=== PATIENT | male | born 1960 | race Caucasian/White ===

== ENCOUNTER → 2018-03-22 | Outpatient (REF) | payer MEDICARE, MEDICAID ==
[2018-03-22 17:38] LABS: INR 0.94; PROTHROMBIN TIME 12.7 SECONDS (12.4-14.5)
[2018-03-22 17:39] LABS: PARTIAL THROMBOPLASTIN TIME 33.9 SECONDS (26.8-37.9)
[2018-03-22 17:51] LABS: PLATELET COUNT, AUTOMATED 233 10^3/uL (150-450)
== END ==
LOC: M LAB REF 16:56
DX: R91.8 Other nonspecific abnormal finding of lung field (principal); Z01.812 Encounter for preprocedural laboratory examination; Z79.01 Long term (current) use of anticoagulants
CPT/HCPCS: 85049

== ENCOUNTER → 2018-04-10 | Outpatient (CLI) | payer MEDICARE, MEDICAID ==
[~2018-04-10] MED LIST: LIDOCAINE 1% MDV 20ML VIAL As Ordered
== END ==
LOC: M RADPRO 10:08
DX: R91.8 Other nonspecific abnormal finding of lung field (principal); J95.811 Postprocedural pneumothorax; Z87.19 Personal history of other diseases of the digestive system; Z95.828 Presence of other vascular implants and grafts; Z79.82 Long term (current) use of aspirin; Z79.899 Other long term (current) drug therapy; Z88.5 Allergy status to narcotic agent; Z88.3 Allergy status to other anti-infective agents; Z88.1 Allergy status to other antibiotic agents
CPT/HCPCS: 32405

== ENCOUNTER 2018-12-05 06:35 | Day surgery (SDC) | payer MEDICARE, MEDICAID ==
[~2018-12-05] VITALS: Ht 172.7 cm; Wt 74.4 kg
[~2018-12-05 06:35] MED LIST changes: +ASPI81TA85 PO; +BACL10TA2 PO; +CLOP75TA2 PO; +GINS100C2 PO; -LIDOCAINE 1% MDV 20ML VIAL As Ordered; +MULTCAP PO; +PANT40TA3 PO; +PROAAER10 INH; +ROSU20TA4 PO; +SAW1CAP2 PO; +ZOLP10TA2 PO
[2018-12-05] MEDS ORDERED: LR 1,000 ML IV ONE (07:00)
[2018-12-05] MEDS ORDERED: THROMBIN SOLN 20,000 UNITS KIT As Ordered ONE (08:18)
[2018-12-05] MEDS ORDERED: EPINEPHrine 1MG/10ML SYRINGE 1.5IN As Ordered ONE (08:19)
[2018-12-05] MEDS ORDERED: LIDOCAINE VISCOUS 2% SOLN 15ML UDC As Ordered ONE (08:19)
[2018-12-05] MEDS ORDERED: LIDOCAINE 4% TOPICAL SOLN 50 ML BTL As Ordered ONE (08:19)
[2018-12-05] MEDS ORDERED: LIDOCAINE 1% SDV INJ 30 ML VIAL As Ordered ONE (08:19)
[2018-12-05] MEDS ORDERED: PROPOFOL 200 MG/20 ML VIAL As Ordered ONE (08:20)
[2018-12-05] MEDS ORDERED: CETACAINE SPRAY 5GM As Ordered ONE (08:20)
[2018-12-05] MEDS ORDERED: ROCURONIUM BROMIDE 50 MG/5 ML VIAL As Ordered ONE (08:20)
[2018-12-05] MEDS ORDERED: LIDOCAINE 2% INJ 100 MG/5 ML SDV (FOR ANES.) As Ordered ONE (08:20)
[2018-12-05] MEDS ORDERED: MIDAZOLAM INJ 2 MG/2 ML VIAL (J2250) As Ordered ONE (08:21)
[2018-12-05] MEDS ORDERED: fentaNYL 100 MCG/2 ML INJECTION (J3010) As Ordered ONE (08:21)
[2018-12-05] MEDS ORDERED: dexameTHASONE 4 MG/ML 1ML VIAL (J1100) As Ordered ONE (08:58)
[2018-12-05] MEDS ORDERED: KETOROLAC 60 MG/2 ML VIAL (J1885) As Ordered ONE (08:58)
[2018-12-05] MEDS ORDERED: ONDANSETRON 4MG/2ML VIAL (J2405) As Ordered ONE (08:58)
[2018-12-05] MEDS ORDERED: SUGAMMADEX SODIUM 500 MG/5 ML VIAL (BRIDION) As Ordered ONE (09:20)
[2018-12-05] MEDS ORDERED: PERCOCET 5MG/325MG TAB PO PRN (10:00)
[2018-12-05] MEDS ORDERED: LR 1,000 ML IV SCH (10:00)
[2018-12-05] MEDS ORDERED: fentaNYL 100 MCG/2 ML INJECTION (J3010) IV PRN (10:00)
[2018-12-05] MEDS ORDERED: ONDANSETRON 4MG/2ML VIAL (J2405) IV PRN (10:00)
--- NOTE | 2018-12-05 10:13 | REP ---
Clinical: Postoperative evaluation. Comparison: 04/10/2018. Findings: Mediastinum and cardiac silhouette are relatively stable. Lung vásquez demonstrate diffuse chronic interstitial changes. Superimposed opacity in the periphery of the right mid lung zone as well as scattered atelectasis cannot be excluded. No obvious effusion. No obvious pneumothorax. Skeletal structures intact. Impression: Diffuse chronic interstitial changes similar to prior examination. Superimposed/increased opacity in the periphery of the right mid lung zone. No pneumothorax. Electronically Signed by Homer Oviedo MD 12/05/2018 10:04 A
[2018-12-05 11:10] VITALS: BP 132/67
--- NOTE | 2018-12-06 07:49 | RO ---
DATE OF PROCEDURE: 12/05/2018 PREOPERATIVE DIAGNOSIS: Bilateral pulmonary nodules with rapid increase in size of the right pulmonary nodule, unknown etiology. POSTOPERATIVE DIAGNOSIS: Bilateral pulmonary nodules with rapid increase in size of the right pulmonary nodule, unknown etiology. PROCEDURE: Electromagnetic Navigational Bronchoscopy with fine needle aspirate, GenCut, transbronchial biopsies, microbiology brushing and BAL. ANESTHESIA: General SURGEON: Dr. Coyne PROCEDURE NOTE: Procedure explained and consent obtained. Bunch procedure was followed. Mr. Caldwell was intubated by anesthesia. Anesthesia controlled sedation and pain management. Following intubation, the bronchoscope was introduced into the trachea. The left and right lungs were examined. There was a small amount of yellow mucous which was evacuated. There was also findings suggestive of yeast. The mucosa was very friable. After initial inspection of the airways, the ENB probe was placed and registration was done. Following this, the right upper lobe pulmonary nodule was located using ENB. After locating the lesion a fine needle aspirate was done followed by a GenCut. The ENB probe was then replaced and confirmed we were still in good position. Following this a microbiology brush was done, then 6 transbronchial biopsies were obtained. This was followed by a BAL. At this point the bronchoscope was withdrawn. The airways were then inspected. There was no significant bleeding. After assuring hemostasis the bronchoscope was withdrawn. Tolerated well. Postprocedure x-ray pending. FINDINGS: 1. Small amount of mucous in the airways bilaterally. 2. Findings suggestive of bronchiectasis. 3. Friable airway. SPECIMENS: 1. Right upper lobe fine needle aspirate of the nodule sent to cytology. 2. GenCut of the right upper lobe nodule sent to cytology. 3. Bronchial brushing of the right upper lobe, nodule sent to microbiology with request for AFB and fungal cultures in addition to routine if possible. 4. Right upper lobe nodule transbronchial biopsies sent to pathology. 5. Right upper lobe nodule BAL sent to cytology as well as to microbiology for gram stain and culture, AFB stain and culture and fungal stain and culture. [facility]
== END 2018-12-05 11:20 | disposition home or self-care (01) ==
LOC: M SDC 06:35
PROVIDERS: ATTEND Internal Medicine Pulmonary Disease
DX: J47.0 Bronchiectasis with acute lower respiratory infection (principal); R06.00 Dyspnea, unspecified; R05 Cough; R94.2 Abnormal results of pulmonary function studies; J34.1 Cyst and mucocele of nose and nasal sinus; E78.5 Hyperlipidemia, unspecified; G25.81 Restless legs syndrome; F17.218 Nicotine dependence, cigarettes, with other nicotine-induced disorders; K21.9 Gastro-esophageal reflux disease without esophagitis; Z79.82 Long term (current) use of aspirin; Z79.02 Long term (current) use of antithrombotics/antiplatelets; Z98.61 Coronary angioplasty status; Z79.899 Other long term (current) drug therapy
CPT/HCPCS: 31623; 31624; 31625; 31627; 31628; 71045; 76000; 87070; 87071; 87102; 87116; 87205; 87206; 88108; 88173; 88305; 88312; 88313; J1100; J1885; J2250; J2405; J3010

== ENCOUNTER → 2019-03-12 | Outpatient (REF) | payer MEDICARE, MEDICAID ==
[2019-03-12 18:46] LABS: APPEARANCE, URINE CLEAR (CLEAR); BACTERIA, URINE AUTO NEGATIVE (NEGATIVE); BILIRUBIN, URINE AUTO NEGATIVE (NEGATIVE); BLOOD, URINE BLOOD NEGATIVE (NEGATIVE); COLOR, URINE YELLOW (YELLOW); GLUCOSE, URINE (UA) AUTO NEGATIVE (NEGATIVE); KETONE, URINE AUTO NEGATIVE (NEGATIVE); LEUKOCYTE ESTERASE, URINE AUTO NEGATIVE (NEGATIVE); NITRITE, URINE AUTO NEGATIVE (NEGATIVE); PROTEIN, URINE AUTO NEGATIVE (NEGATIVE); RBC, URINE AUTO 0 /HPF (0-3); SPECIFIC GRAVITY URINE AUTO 1.014 (1.002-1.035); SQUAMOUS EPITHELIAL CELL UR AU 0 /HPF (0-6); WBC, URINE AUTO 1 /HPF (0-3)
== END ==
LOC: M SMT 17:21
PROVIDERS: ATTEND Nurse Practitioner Women's Health
DX: N40.1 Benign prostatic hyperplasia with lower urinary tract symptoms (principal)
CPT/HCPCS: 51798; 81001; 87086; G0463

== ENCOUNTER → 2019-04-16 | Outpatient (CLI) | payer MEDICARE, MEDICAID ==
[~2019-04-16] MED LIST changes: -ROSU20TA4 PO; +ROSU20TA5 PO
--- NOTE | 2019-04-16 19:21 | REP ---
PET/CT: History: Diagnosing solitary pulmonary nodule. Comparisons: Comparison PET-CT study July 04, 2017. Comparison CT scan is from March 27, 2019. Enlarging left upper lobe and right upper lobe pulmonary nodules. Small nodule in the left apex as well. TECHNIQUE: 44 minutes following the intravenous injection of a 9.19 mCi dose of F-18 FDG, three-dimensional PET scintigraphy is acquired from the skull base to the proximal thighs. Triplanar noncontrast CT scanning is acquired through the same anatomic range for attenuation correction, and image registration with scan parameters optimized to minimize radiation exposure to the patient. PET scintigraphy and CT datasets were fused and displayed on a workstation with multiplanar and projection display capability. PET/CT Findings: There is discernible but non hypermetabolic uptake in the sub-centimeter nodule in the left lung apex. Maximum standard uptake value is 1.58. The enlarging spiculated nodule in the left upper lobe lingular segment is quite hypermetabolic today, maximum standard uptake value 14.07, previously 2.9. There is hypermetabolic peg uptake in the inferior hilus on the left with maximum standard uptake value 4.73. This is a new finding. The spiculated opacity in the right upper lobe is mildly hypermetabolic with maximum standard uptake value 4.19. No mediastinal or right hilar hypermetabolic uptake is seen. Head and neck soft tissues are unremarkable. No abnormal hypermetabolic uptake is seen in the abdomen or pelvis. Incidental findings include left colonic diverticulosis, cholelithiasis, and bilateral common and external iliac artery stents. Impression: Hypermetabolic uptake is seen in the spiculated lingular and right upper lobe nodular opacities. There is also hypermetabolic peg uptake in the left inferior hilus today. Significant change from the comparison PET-CT. Electronically Signed by Jeramy Collins MD 04/16/2019 07:32 P
== END ==
LOC: M PLARAD 13:39
PROVIDERS: ATTEND Internal Medicine Pulmonary Disease
DX: R91.1 Solitary pulmonary nodule (principal)
CPT/HCPCS: 78815; A9552

== ENCOUNTER → 2019-04-17 | Outpatient (REF) | payer MEDICARE, MEDICAID ==
[2019-04-17 18:00] LABS: INR 0.94; PROTHROMBIN TIME 12.3 SECONDS (11.8-14.0)
[2019-04-17 18:01] LABS: PARTIAL THROMBOPLASTIN TIME 33.7 SECONDS (25.0-38.4)
== END ==
LOC: M LAB REF 16:51
PROVIDERS: ATTEND Internal Medicine Pulmonary Disease
DX: Z01.812 Encounter for preprocedural laboratory examination (principal); Z79.01 Long term (current) use of anticoagulants; R91.8 Other nonspecific abnormal finding of lung field

== ENCOUNTER → 2019-04-30 | Outpatient (CLI) | payer MEDICARE, MEDICAID ==
[~2019-04-30] MED LIST changes: +LIDOCAINE 1% MDV 20ML VIAL As Ordered ONE
[2019-04-30 12:31] VITALS: BP 163/73
--- NOTE | 2019-04-30 14:08 | REP ---
POSTBIOPSY CHEST: Single view of the chest is performed status post left lung biopsy. There is no pneumothorax. There are fibroatelectatic changes seen in the lung bases bilaterally. IMPRESSION: No pneumothorax status post left lung biopsy. Electronically Signed by Paddy Lemos MD 04/30/2019 05:21 P
--- NOTE | 2019-04-30 17:08 | REP ---
CT-GUIDED LEFT UPPER LOBE LUNG BIOPSY The procedure was performed under the direct supervision of Dr. lemos. The patient has a history of an enlarging spiculated nodule in the left upper lobe lingular segment which is hypermetabolic on a previous PET scan dated 04/16/2019. The risks and benefits of the procedure were explained to the patient and informed consent was obtained. The left upper lobe lung nodule was localized using CT guidance. The skin was prepped and draped in a sterile fashion. 1% lidocaine was used as a local anesthetic. Using CT guidance a 19/20 gauge coaxial needle biopsy system was inserted and advanced into the nodule. Five core biopsy samples were obtained and sent to lab. The patient tolerated the procedure well and there were no immediate complications. After the appropriate amount of monitored convalescence the patient was discharged from the department. Reviewed by ALONDRA Qiu 04/30/2019 04:39 P Electronically Signed by Paddy Lemos MD 04/30/2019 05:00 P
== END ==
LOC: M IRPRO 08:33
DX: C34.31 Malignant neoplasm of lower lobe, right bronchus or lung (principal)

== ENCOUNTER → 2019-08-20 | Outpatient (CLI) | payer MEDICARE, MEDICAID ==
[~2019-08-20] MED LIST changes: -LIDOCAINE 1% MDV 20ML VIAL As Ordered ONE; +TRIA1OI TOP
--- NOTE | 2019-08-20 19:50 | REP ---
PET/CT: History: Restaging bilateral lung CA. Stage IV adenocarcinoma of the lung. Chemotherapy. Comparisons: Comparison PET-CT study April 16, 2019. TECHNIQUE: 49 minutes following the intravenous injection of a 7.33 mCi dose of F-18 FDG, three-dimensional PET scintigraphy is acquired from the skull base to the proximal thighs. Triplanar noncontrast CT scanning is acquired through the same anatomic range for attenuation correction, and image registration with scan parameters optimized to minimize radiation exposure to the patient. PET scintigraphy and CT datasets were fused and displayed on a workstation with multiplanar and projection display capability. PET/CT Findings: The spiculated lingular nodule has decreased in size in the interval since the last PET-CT and currently measures 1.7 cm in diameter. It remains hypermetabolic although much less so. Maximum standard uptake value is 4.1. Previously 14.07. This spiculated opacity previously noted to be hypermetabolic in the right upper lobe is much improved as well with ill-defined nonhypermetabolic opacity in this location, maximum standard uptake value 1.24. There is no definite hilar peg uptake. There is a focus of hypermetabolic uptake at the level of the main stem bronchus on the left. Maximum standard uptake value here is 5.98 but there is no corresponding morphologic finding in the left mainstem bronchus. No mass or nodule is appreciated on corresponding CT. This uptake is of uncertain significance. No other abnormal hypermetabolic uptake is seen within the chest. Head and neck soft tissues are unremarkable. In the abdomen and pelvis there is no abnormal hypermetabolic uptake. No adrenal uptake is seen. Impression: Significantly improved PET-CT findings. Regression in the two areas of hypermetabolic pulmonary parenchymal uptake seen on the most recent prior PET-CT study. There is a tiny subcentimeter focus of hypermetabolic uptake on today's PET-CT superimposed on the left mainstem bronchus with no corresponding morphologic abnormality, uncertain significance. Electronically Signed by Jeramy Collins MD 08/20/2019 08:16 P
== END ==
LOC: M PLARAD 11:19
PROVIDERS: ATTEND Internal Medicine Hematology & Oncology
DX: C34.31 Malignant neoplasm of lower lobe, right bronchus or lung (principal); C34.32 Malignant neoplasm of lower lobe, left bronchus or lung
CPT/HCPCS: 78815; A9552

== ENCOUNTER → 2020-02-11 | Outpatient (CLI) | payer MEDICARE, MEDICAID ==
[~2020-02-11] MED LIST changes: +AZIT-12 PO; +MUCI1CAP PO; +NASA1SPR NARES; +OXYC1CAP PO; +PRED20TA PO
--- NOTE | 2020-02-12 09:25 | REP ---
PET/CT: HISTORY: Restaging left upper lobe lung carcinoma. Adenocarcinoma. Stage IV. Chemotherapy. COMPARISONS: Comparison PET/CT study August 20, 2019. The April 16, 2019 PET/CT study is also reviewed. There is a CT study of the chest from March 27, 2019. TECHNIQUE: 56 minutes following the intravenous injection of a 8.27 mCi dose of F-18 FDG, three-dimensional PET scintigraphy is acquired from the skull base to the proximal thighs. Triplanar noncontrast CT scanning is acquired through the same anatomic range for attenuation correction, and image registration with scan parameters optimized to minimize radiation exposure to the patient. PET scintigraphy and CT datasets were fused and displayed on a workstation with multiplanar and projection display capability. PET/CT FINDINGS: Head and neck soft tissues are unremarkable. There are hypermetabolic foci in the subcarinal, left hilar, and left lower lobe of the lung. The subcarinal adenopathy shows hypermetabolic uptake with maximum SUV value 28.56. Previously, 5.90. Subcarinal node is enlarged measuring 2.7 cm in greatest diameter which is unchanged from the prior study as well. The left hilar hypermetabolic focus is a new finding from August 20, 2019. A maximum standard uptake value in the left hilar focus is 18.06 today. This is approximately 1.5 cm. The nodule in the lingula at the left lung base shows hypermetabolic uptake today, maximum standard uptake value 10.89. It is unchanged in size measuring 17 mm in greatest diameter but has increased in avidity since the prior study. No other abnormal hypermetabolic uptake is seen. No abnormal adrenal uptake is observed. No other pulmonary parenchymal hypermetabolic uptake is observed. IMPRESSION: There is evidence of progression. Subcarinal hypermetabolic adenopathy and left hilar adenopathy have increased. The degree of uptake is increased in the lingular nodule. Electronically Signed by Jeramy Collins MD 02/12/2020 10:43 A
== END ==
LOC: M PLARAD 13:14
PROVIDERS: ATTEND Internal Medicine Hematology
DX: C34.12 Malignant neoplasm of upper lobe, left bronchus or lung (principal); R59.0 Localized enlarged lymph nodes
CPT/HCPCS: 78815; A9552

== ENCOUNTER → 2022-01-31 | Outpatient (CLI) | payer MEDICARE, MEDICAID ==
[~2022-01-31] MED LIST changes: -ASPI81TA85 PO; +ASPI81TA86 PO; +BENZ200C70 PO; +ONDA-83 PO; +PANT40TA29 PO; -PANT40TA3 PO; +POTA-136 PO
== END ==
LOC: M LABSMTC 11:14
PROVIDERS: ATTEND Anesthesiology
DX: Z01.812 Encounter for preprocedural laboratory examination (principal); Z20.822 Contact with and (suspected) exposure to COVID-19

== ENCOUNTER 2022-02-04 09:35 | Day surgery (SDC) | payer MEDICARE, MEDICAID ==
[~2022-02-04] VITALS: Ht 172.7 cm; Wt 65.2 kg
[~2022-02-04 09:35] MED LIST changes: +CEFUROXIME 1MG/0.1ML INTRACAMERAL INJ As Ordered ONE; +LIDOCAINE 1% MDV 20ML VIAL SQ PRN; +LIDOCAINE 1% SDV 5ML VIAL As Ordered ONE; +LR 1,000 ML IV ONE; +OFLOXACIN 0.3 % (OCUFLOX) OPTH SOL 5ML OD SCH; +PHENYLEPHRINE 2.5% OPHTH SOL 2ML OD SCH; +PROPARACAINE 0.5% OPHTH SOL 15ML OD ONE; +TROPICAMIDE 1% OPHTH SOLN 2ML OD SCH
[2022-02-04] MEDS ORDERED: BSS IRR 500ML/OMIDRIA 4ML IRR BAG (OR ONLY) As Ordered ONE (11:15)
[2022-02-04] MEDS ORDERED: MIDAZOLAM INJ 2MG/2ML VIAL (J2250 PER 1MG) As Ordered ONE (11:32)
[2022-02-04] MEDS ORDERED: fentaNYL 100 MCG/2 ML INJECTION As Ordered ONE (11:32)
[2022-02-04 12:40] VITALS: BP 136/63
== END 2022-02-04 12:40 | disposition home or self-care (01) ==
LOC: M SDC 09:35
PROVIDERS: ATTEND Ophthalmology
DX: H25.11 Age-related nuclear cataract, right eye (principal); I10 Essential (primary) hypertension; I73.9 Peripheral vascular disease, unspecified; K21.9 Gastro-esophageal reflux disease without esophagitis; K57.92 Diverticulitis of intestine, part unspecified, without perforation or abscess without bleeding; J44.9 Chronic obstructive pulmonary disease, unspecified; Z85.118 Personal history of other malignant neoplasm of bronchus and lung; Z85.840 Personal history of malignant neoplasm of eye; Z92.21 Personal history of antineoplastic chemotherapy; Z92.3 Personal history of irradiation; F17.218 Nicotine dependence, cigarettes, with other nicotine-induced disorders; F12.10 Cannabis abuse, uncomplicated; Z88.8 Allergy status to other drugs, medicaments and biological substances; Z88.1 Allergy status to other antibiotic agents; Z88.5 Allergy status to narcotic agent; Z79.899 Other long term (current) drug therapy
CPT/HCPCS: 66984; J1097; J1120; J2250; J3010; V2632